=== PATIENT | male | born 1945 | race Caucasian/White ===

== ENCOUNTER 2019-11-08 09:08 | Emergency (ER) | payer OTHER ==
[~2019-11-08 09:08] MED LIST: ASPIRIN LOW DOS81 M2 PO; ATACAND8 MG PO; CEPHALEXIN500 MG PO; SYMBICORT 80-4.5MCG PO; VENTOLIN HFA IN
[2019-11-08] MEDS ORDERED: CYCLOBENZAPR5 MG PO (09:40)
[2019-11-08 10:01] VITALS: BP 147/86
== END 2019-11-08 10:00 | disposition home or self-care (01) | DRG 552 ==
LOC: ED 09:08
DX: M43.6 Torticollis (principal); I10 Essential (primary) hypertension